=== PATIENT | female | born 1975 | race Caucasian/White ===

== ENCOUNTER 2021-08-12 03:45 | Inpatient (IN) | payer OTHER ==
[2021-08-12] MEDS ORDERED: ACETAMINOPHEN 325 MG TAB PO PRN (03:58)
[2021-08-12] MEDS ORDERED: WITCH HAZEL/ GLYCERIN PAD TP PRN (03:58)
[2021-08-12] MEDS ORDERED: MAGNESIUM HYDROXIDE (MOM) ORAL LIQD UDC PO PRN (03:58)
[2021-08-12] MEDS ORDERED: HYDROcodone/ACETAMINOPHEN 5-325 MG TAB PO PRN (03:58)
[2021-08-12] MEDS ORDERED: LANOLIN/ZINC/DIMETHICONE (LANSINOH) 7 GM TP PRN (03:58)
[2021-08-12] MEDS ORDERED: OXYTOCIN DRIP 30,000 MILLIUNITS/500 ML BAG IV ONE (04:00)
[2021-08-12] MEDS ORDERED: IBUPROFEN 600 MG TAB PO SCH (04:00)
--- NOTE | 2021-08-12 04:01 | History and Physical Report ---
History of Present Illness Date of examination: 08/12/21 Date of admission: 08/12/21 03:45 Chief complaint: for removal of placenta History of present illness: at term per pt report with care at [facility]. Pt speaks only kyrgyz and partner states pt did not want a repeat c/section hence she delivered at home, however the placenta was still in place. FOB speaks Frisian and states the fluid was very yellow. pt denies headache and is not currently bleeding. denies fever or chills Past History Past Medical History: no pertinent history Past Surgical History: section (x1) Social history: no significant social history - Obstetrical History Expected Date of Delivery: 08/12/21 Actual Gestation: 40 Week(s) 0 Day(s) : 5 Hx # Term Pregnancies: 5 (4th preg with c/s) Number of Living Children: 5 Review of Systems All systems: negative (undelivered placenta) - Vital Signs Vital signs: Vital Signs Pulse Pulse Ox 68 96 08/12/21 03:46 08/12/21 03:46 Temp Pulse Resp BP Pulse Ox 74 99/52 96 08/12/21 03:51 08/12/21 03:47 08/12/21 03:51 - Physical Exam Breasts: Positive: deferred Cardiovascular: Regular rate Lungs: Positive: Normal air movement Abdomen: Positive: soft Genitourinary (Female): Positive: normal external genitalia Vulva: both: normal Vagina: Positive: normal moisture Uterus: Positive: enlarged Extremities: Positive: normal - Obstetrical Cervical Dilatation: 6 (placenta in the vagina) Results All other labs normal. Assessment and Plan Term home with previous c/section and placenta in the vagina 1. Admit to labor and delivery, obtain consents; FOB states he will bring in records today 2. Send placenta to pathology 3. Will give ancef now x1 dose Plan of care discussed with all risks, benefits and alternatives and signed consents
--- NOTE | 2021-08-12 04:11 | Procedure Note ---
OB Delivery Note - Delivery Date of Delivery: 08/12/21 Surgeon: RUSTY CERVANTES Estimated blood loss: other (50) - Vaginal Delivery induction: none Delivery monitor: none Delivery placenta: expressed (when pt asked to push) Delivery cord: 3 umbilical vessels Episiotomy: none Delivery laceration: none Anesthesia: intravenous Delivery comments: Pt given IV fentanyl and then asked to push. Pelvic exam revealed placenta in the vag with large dark red clot. Meconium stained membranes and placenta sent to pathology. Cervix visualized and no lacerations noted and no lacerations noted to vagina either. Bimanual exam with uterus firm. Placenta warm. Will give one dose of ancef until labs obtained and records not available with current placenta insitu for more than 3hrs. EBL 50cc
[2021-08-12 04:28] LABS: Hematocrit 33.2 % (30.3-42.9); Hemoglobin 11.2 gm/dl (10.1-14.3); Mean Corpuscular HGB Conc 34 % (30-34); Mean Corpuscular Volume 90 fl (79-97); Platelet Count 266 K/mm3 (140-440); Red Cell Distribution Width 13.3 % (13.2-15.2)
[2021-08-12] MEDS ORDERED: fentaNYL 100 MCG/2 ML INJ IV ONE (04:48)
[2021-08-12 04:57] LABS: Hepatitis C Virus Antibody Non-Reactive (NonReactive)
[2021-08-12 05:19] VITALS: BP 100/55
--- NOTE | 2021-08-12 07:37 | Event Note ---
Date: 08/12/21 Nurse notified me that pt left AMA at approx 6am. Pt was not upset, she wanted to go home.
[2021-08-12] MEDS ORDERED: DOCUSATE SODIUM 100 MG CAP PO SCH (10:00)
== END 2021-08-12 06:00 | disposition left against medical advice (07) | DRG 776 ==
LOC: LD 03:45
PROVIDERS: ADMIT Obstetrics & Gynecology; ATTEND Obstetrics & Gynecology
PROC: 10E0XZZ Delivery of Products of Conception, External Approach (ICD-10-PCS; principal; 2021-08-12)
DX: Z39.0 Encounter for care and examination of mother immediately after delivery (principal); Z53.29 Procedure and treatment not carried out because of patient's decision for other reasons
CPT/HCPCS: 36415; 85027; 86592; 86706; 86762; 86803; 87806; G0378; J2590; J3010